=== PATIENT | female | born 1960 | race African-American/Black ===

== ENCOUNTER 2018-05-15 12:50 | Emergency (ER) | payer MEDICAID ==
[~2018-05-15] VITALS: Ht 162.6 cm; Wt 80.3 kg
[~2018-05-15 12:50] MED LIST: COLACE100 MG PO; ENALAPRIL20 M1 PO; MORPHINE SULFAT15 MG PO; OXYCODONE HYDRO10 M1 PO; OXYCODONE HYDRO15 MG PO; SENOKOT NATURA8.6 M1 PO; SOMA350 MG PO
[2018-05-15 12:56] VITALS: Ht 162.6 cm; Wt 80.3 kg
[2018-05-15 15:23] VITALS: BP 149/85
== END 2018-05-15 15:23 | disposition home or self-care (01) ==
LOC: ED 12:50
DX: K02.9 Dental caries, unspecified (principal); K04.7 Periapical abscess without sinus; M79.1 Myalgia; I10 Essential (primary) hypertension; Z90.11 Acquired absence of right breast and nipple; Z88.2 Allergy status to sulfonamides; Z88.8 Allergy status to other drugs, medicaments and biological substances
CPT/HCPCS: J0690